=== PATIENT | female | born 1950 | race Caucasian/White ===

== ENCOUNTER 2021-08-21 13:25 | Inpatient (IN) ==
--- NOTE | 2021-08-21 13:55 | Emergency Department Note ---
HPI General Chief complaint: Trauma Stated complaint: weakness Time Seen by Provider: 08/21/21 13:45 Source: patient and EMS Mode of arrival: EMS History of Present Illness HPI Narrative: This a 70-year-old female with T2DM, hypertension, hyperlipidemia, GERD, hiatal hernia who suffered a ground-level fall earlier today walking down 5 stairs at her home. She states that she usually takes these 1 at a time and stepped down on the first stair and felt her legs give out due to weakness. She then slid down the remaining 4 stairs. She did not hit her head and there was no loss of consciousness. She is now complaining of bilateral lower extremity pain. EMS was called and they were unable to stand her up. Patient states that she has been suffering from myalgias from a statin that was started on 07/23/2021. She stopped the statin on 07/30 due to severe lower extremity muscle pain and cramping. She denies weakness preceding this event. She continues to have bilateral lower extremity muscle pain, but her lower extremity pain today is new after her fall. Patient takes tizanidine in the past for back pain. She did start taking this again in the setting of her ongoing myalgias. She denies dizziness or lightheadedness and typically tolerates this medication well. She denies nausea and vomiting. Denies lightheadedness or dizziness. Denies paresthesias. Denies radicular pain. No other complaints. Related Data Allergies Allergy/AdvReac Type Severity Reaction Status Date / Time phenazopyridine [From Azo] Allergy Severe Anaphylaxis Verified 08/21/21 13:27 ibuprofen Allergy Intermediate Hives Verified 08/21/21 13:27 Penicillins Allergy Unknown Unknown Verified 08/21/21 17:21 Review of Systems ROS ROS Narrative: Narrative: All systems ED: reviewed and negative except as stated. PFSH Narrative Patient History Narrative: Narrative: Medical/Surgical/Family History All Active Problems (Updated 08/21/21 @ 17:28 by Wen Lewis PA-C) Ankle fracture, lateral malleolus, closed (Acute) Bilateral fibular fractures (Acute) Myalgia and myositis (Acute) HTN (hypertension) (Acute) DM2 (diabetes mellitus, type 2) (Acute) Ankle fracture, left (Acute) Social History Smoking Status: Never smoker Exam Narrative Narrative: General: AOx3, NAD, nontoxic appearing. Pleasant and conversant. HEENT: PERRL, EOMI, normocephalic. Moist mucous membranes. Normal facies and normal dentition. Chest: Symmetric, no pain to palpation Respiratory: Lungs clear to auscultation bilaterally. No respiratory distress. Unlabored breathing. Heart: Regular rate and rhythm, no murmurs/clicks/rubs. Abdomen: Non-tender, Non distended, Extremities: Warm and well perfused. No edema. DP 2+ bilaterally. No venous stasis. Abrasion noted to the right lateral lower extremity. No ecchymosis. No deformities. Patient has 5/5 strength to motor testing. She is sensate to light touch throughout the bilateral lower extremities with no deficits. Neuro: No focal deficits. Cranial nerves II-XII grossly normal. Skin: Warm dry, no rashes or lesions, no cyanosis. Psych: Normal mood and affect Heme/Lymph: No abnormal bruising Course Course Course Narrative: 70-year-old female presents for fall and lower extremity weakness Reevaluation(s) Reevaluation #1: Obtain CBC, CMP, CK to query for rhabdomyolysis Obtain bilateral lower extremity tib-fib x-rays to rule out trauma Reevaluation #2: CK is normal, CMP and CBC without significant electrolyte derangements or anemia. No leukocytosis. Reevaluation #3: Bilateral lower extremity x-rays show bilateral high fibular fractures with a left lateral malleoli are fracture. I spoke with Dr. Solo and he would like additional 3 view of the bilateral ankles. He would like to take her for surgical repair today. Patient lives independently at home and will likely need placement following her surgery. I have reached out to the hospitalist for admission given her comorbidities of hypertension, type II DM, and morbid obesity. Vital Signs Vital signs: Vital Signs Temperature 97.9 F 08/21/21 13:28 Pulse Rate 108 H 08/21/21 13:28 Respiratory Rate 20 08/21/21 13:28 Blood Pressure 157/100 08/21/21 13:28 Pulse Oximetry (%) 96 08/21/21 13:28 Temperature 97.9 F 08/21/21 13:28 Pulse Rate 113 H 08/21/21 17:11 Respiratory Rate 20 08/21/21 13:28 Blood Pressure 170/85 08/21/21 17:02 Pulse Oximetry (%) 94 08/21/21 17:11 MDM MDM Narrative Medical decision making narrative: Bilateral fibular fractures Left lateral malleolar fracture Patient will need surgical repair of her fractures. I reached out to Dr. Solo [facility] Given her comorbidities and need for placement following her procedure I reached out to the hospitalist for admission who is accepted the patient. Admission pending. Lab Data Result diagrams: 08/21/21 14:11 08/21/21 15:58 Labs: Lab Results 08/21/21 08/21/21 08/21/21 Range/Units 14:10 14:11 14:36 WBC 8.9 (4.5-11.0) K/mcL RBC 5.34 (3.59-5.38) M/mcL Hgb 15.2 (11.2-15.7) g/dL Hct 47.4 H (34.1-44.9) % POC Hct 52.0 H (36-48) MCV 88.8 (80.0-100.0) fL MCH 28.5 (26.0-34.0) pg MCHC 32.1 (31.0-36.0) g/dL RDW 13.5 (11.5-14.5) % Plt Count 243 (140-440) K/mcL MPV 9.9 (7.4-10.4) fL Neut % (Auto) 74.3 (38.0-78.0) % Lymph % (Auto) 17.3 (15.5-49.0) % Collier % (Auto) 6.5 (1.0-12.0) % Eos % (Auto) 1.4 (0.0-7.0) % Baso % (Auto) 0.5 (0.0-2.0) % Lymph # (Auto) 1.53 (1.50-4.80) K/mcL Collier # (Auto) 0.58 (0.10-0.90) K/mcL Eos # (Auto) 0.12 (0.00-0.70) K/mcL Baso # (Auto) 0.04 (0.00-0.30) K/mcL Absolute Neutrophils 6.59 (1.80-8.00) K/mcL POC Sodium 140 (133-145) Sodium (133-145) mmol/L POC Potassium 3.5 (3.3-5.1) Potassium (3.3-5.1) mmol/L POC Chloride 106 (96-108) Chloride (96-108) mmol/L Carbon Dioxide (22-30) mmol/L POC Total CO2 26.0 (22-30) Anion Gap (8.0-16.0) POC BUN 23 H (6-20) BUN (8-23) mg/dL Creatinine (0.6-1.1) mg/dL POC Creatinine 0.8 (0.6-1.2) GFR Calculation Glucose (70-105) mg/dL POC Glucose 134 H (70-105) Calcium (8.6-10.4) mg/dL POC WB Ioniz Calcium 1.03 L (1.16-1.32) Total Bilirubin (0.1-1.0) mg/dL AST (<32) U/L ALT (<40) U/L Alkaline Phosphatase (39-117) U/L Total Creatine Kinase 102 (24-170) U/L Total Protein (5.9-8.4) gm/dL Albumin (3.2-5.2) gm/dL Globulin (2.2-3.7) gm/dL Albumin/Globulin Ratio (1.0-2.3) 08/21/21 Range/Units 15:58 WBC (4.5-11.0) K/mcL RBC (3.59-5.38) M/mcL Hgb (11.2-15.7) g/dL Hct (34.1-44.9) % POC Hct (36-48) MCV (80.0-100.0) fL MCH (26.0-34.0) pg MCHC (31.0-36.0) g/dL RDW (11.5-14.5) % Plt Count (140-440) K/mcL MPV (7.4-10.4) fL Neut % (Auto) (38.0-78.0) % Lymph % (Auto) (15.5-49.0) % Collier % (Auto) (1.0-12.0) % Eos % (Auto) (0.0-7.0) % Baso % (Auto) (0.0-2.0) % Lymph # (Auto) (1.50-4.80) K/mcL Collier # (Auto) (0.10-0.90) K/mcL Eos # (Auto) (0.00-0.70) K/mcL Baso # (Auto) (0.00-0.30) K/mcL Absolute Neutrophils (1.80-8.00) K/mcL POC Sodium (133-145) Sodium 140 (133-145) mmol/L POC Potassium (3.3-5.1) Potassium 3.5 (3.3-5.1) mmol/L POC Chloride (96-108) Chloride 99 (96-108) mmol/L Carbon Dioxide 26 (22-30) mmol/L POC Total CO2 (22-30) Anion Gap 15.0 (8.0-16.0) POC BUN (6-20) BUN 16 (8-23) mg/dL Creatinine 0.8 (0.6-1.1) mg/dL POC Creatinine (0.6-1.2) GFR Calculation 75 Glucose 125 H (70-105) mg/dL POC Glucose (70-105) Calcium 9.7 (8.6-10.4) mg/dL POC WB Ioniz Calcium (1.16-1.32) Total Bilirubin 0.5 (0.1-1.0) mg/dL AST 22 (<32) U/L ALT 26 (<40) U/L Alkaline Phosphatase 119 H (39-117) U/L Total Creatine Kinase (24-170) U/L Total Protein 7.4 (5.9-8.4) gm/dL Albumin 4.2 (3.2-5.2) gm/dL Globulin 3.2 (2.2-3.7) gm/dL Albumin/Globulin Ratio 1.3 (1.0-2.3) ED POC Tests ED POC Tests: CONCHA - SARS Antigen Negative Discharge Plan Patient/Caregiver Discharge Instructions Pt seen by FRE[facility] LOADER/PA only: Yes Clinical Impression: Ankle fracture, lateral malleolus, closed, Bilateral fibular fractures Patient Disposition: Xfer As Inpt ([facility]) Discharge Date/Time: 08/21/21 17:15
[2021-08-21 14:40] LABS: POC Calcium, Ionized 1.03 (1.16-1.32); POC Creatinine 0.8 (0.6-1.2); POC Potassium 3.5 (3.3-5.1)
[2021-08-21 14:42] LABS: Basophils # (Auto) 0.04 K/mcL (0.00-0.30); Basophils % (Auto) 0.5 % (0.0-2.0); Eosinophils # (Auto) 0.12 K/mcL (0.00-0.70); Eosinophils % (Auto) 1.4 % (0.0-7.0); Hematocrit 47.4 % (34.1-44.9); Hemoglobin 15.2 g/dL (11.2-15.7); Lymphocytes # (Auto) 1.53 K/mcL (1.50-4.80); Lymphocytes % (Auto) 17.3 % (15.5-49.0); Mean Cell Volume 88.8 fL (80.0-100.0); Mean Corpuscular HGB Conc 32.1 g/dL (31.0-36.0); Mean Platelet Volume 9.9 fL (7.4-10.4); Monocytes # (Auto) 0.58 K/mcL (0.10-0.90); Monocytes % (Auto) 6.5 % (1.0-12.0); Neutrophils % (Auto) 74.3 % (38.0-78.0); Platelet Count 243 K/mcL (140-440); RBC 5.34 M/mcL (3.59-5.38); Red Cell Distribution Width 13.5 % (11.5-14.5); WBC 8.9 K/mcL (4.5-11.0)
[2021-08-21 15:04] LABS: Creatine Kinase 102 U/L (24-170)
[2021-08-21] MEDS ORDERED: KETOROLAC 60 MG/2 ML VIAL IM ONE (15:38)
--- NOTE | 2021-08-21 15:55 | XRay Report ---
History: Fell, bilateral leg injuries FINDINGS: AP and lateral views were obtained of the lower leg bilaterally. Left leg: There is an obliquely oriented fracture in the proximal shaft of the fibula. There is also and obliquely oriented fracture through the lateral malleolus. The talus is also displaced in a lateral direction resulting in moderate widening of the medial joint compartment. There is no fracture in the tibia. However, there is moderate osteoarthritis in the knees, predominantly involving the medial joint compartment. Right leg: There is an acute comminuted fracture in the proximal shaft of the fibula. There is mild lateral angulation at the fracture site. Distal end of the fibula is intact. The tibia is normal with no fracture. Ankle joint space is normal in width and alignment. Severe osteoarthritis is present in the medial joint compartment with partial obliteration of the joint space, reactive sclerosis and spur formation. IMPRESSION: Comminuted fracture in the proximal right fibula Fractures in both the proximal and distal ends of the left fibula. Lateral subluxation of the left talus with widening of the medial joint compartment Interpreted and Authenticated by: Jacques Holloway 08/21/21
--- NOTE | 2021-08-21 16:36 | XRay Report ---
HISTORY: Fell, right ankle injury FINDINGS: No fracture or dislocation are present. Joint spaces are normal in width. There is soft tissue swelling surrounding the ankle. A large spur is present on the plantar surface of the calcaneus. There is no associated erosion. There is no other degenerative change. IMPRESSION: No fracture Interpreted and Authenticated by: Jacques Holloway 08/21/21
--- NOTE | 2021-08-21 16:37 | XRay Report ---
HISTORY: Fell, left ankle injury FINDINGS: There is an acute spiral fracture of the lateral malleolus. Distal end of the bone is mildly angulated in a lateral direction. The talus is subluxed laterally resulting in moderate widening of the medial joint compartment. There is an associated joint effusion. No other fracture is present. Large spur is present on the plantar surface of the calcaneus. IMPRESSION: Fractured lateral talus with lateral subluxation of the talus Interpreted and Authenticated by: Jacques Holloway 08/21/21
--- NOTE | 2021-08-21 16:39 | XRay Report ---
HISTORY: Fell, preop for repair fractured ankle FINDINGS: The lungs are clear. There is a retrocardiac opacity which is probably a large hiatus hernia. A medium-size hiatus hernia was seen on the prior x-ray done at [facility] on 09/25/15. Heart size and pulmonary vasculature are normal. There is no pleural effusion. Severe arthritis is present in the right shoulder and there is moderate arthritis in the left. IMPRESSION: Hiatus hernia and no acute abnormality Interpreted and Authenticated by: Jacques Holloway 08/21/21
[2021-08-21] MEDS ORDERED: ceFAZolin 3 GM in DEXTROSE 5% IN WATER 50 ML IV SCH (17:00)
--- NOTE | 2021-08-21 17:04 | Consultation ---
DATE OF CONSULTATION: 08/21/2021 REASON FOR CONSULTATION: Bilateral leg fractures. DATE OF CONSULTATION: 08/21/2021. CONSULTING PROVIDER: ANN-MARIE Pisano. HISTORY OF PRESENT ILLNESS: The patient is a 70-year-old female who reports falling down some steps earlier today. She resides by herself, reports inability to ambulate thereafter, and brought to the emergency department for evaluation and treatment. On presentation, she complains of bilateral lower extremity pain. She reports that she has been having joint pain for quite some time and thought it was from her statin medication. This was stopped. However, the pain continued, and she had her legs just gave way when she went to go down the steps and lost balance and fell. PAST MEDICAL HISTORY: Significant for diabetes, hiatal hernia, reflux, and hypertension. PAST SURGICAL HISTORY: Right total hip arthroplasty, cholecystectomy, hernia operative fixation. ALLERGIES: PENICILLIN, IBUPROFEN, PHENAZOPYRIDINE. MEDICATIONS: She does take metformin and hypertension medication as well as medication for her reflux. SOCIAL HISTORY: She does reside by herself here locally. She does not use tobacco products. REVIEW OF SYSTEMS: Other than mentioned in HPI, a 10-point review of systems is negative. PHYSICAL EXAMINATION: GENERAL: The patient is alert, oriented, interactive and appropriate. VITAL SIGNS: She is afebrile, temperature of 97.9, heart rate is in the low 100s, blood pressure 150s over 90s, saturating 92 to 96% on room air. EXTREMITIES: Right lower extremity reveals that she does have significant swelling about the lateral malleolar region. Skin is intact. No significant abrasions noted. She does have mild tenderness about the proximal fibula. The foot is slightly externally rotated and is warm and well perfused. Sensation is intact to light touch. Examination of the left lower extremity reveals she has an abrasion over the anterolateral aspect of her mid leg region as well as abrasion over the toes; however, no skin breaks, otherwise. She has significant swelling over the lateral aspect of the ankle as well, but sensation intact throughout. Renetta lines were present. No tenderness about the more proximal region. Foot is warm and well perfused. IMAGING: She has plain radiographs to include tib-fib bilaterally as well as ankle x-rays bilaterally. She has a left displaced distal fibular fracture at level of the plafond with significant medial clear space widening. She has a proximal fibular fracture on the same side that is spiral and slightly shortened as well. She also has a right proximal fibula spiral fracture. Did not appear to have an ankle fracture itself. The mortise is reduced. ASSESSMENT AND PLAN: This is a 70-year-old female who has bilateral lower extremity fractures. The left side appears to be an unstable ankle fracture, which I reviewed with her and discussed treatment options. My recommendation would be operative fixation given the unstable nature of the fracture. I discussed sometimes there is a requirement for transsyndesmotic fixation, which I suspect is the case for her. If we do use solid screws, this would be something that we would recommend removing around the 4-month postoperative timothy. She is also going to be restricted weightbearing on the left lower extremity for 6 weeks. She will be foot flat in the interim. The right lower extremity questionable syndesmotic injury as she does have significant bruising and pain distally; however, no fractures and the mortise is reduced on radiographs. I discussed while undergoing operative fixation of the left ankle we can stress the right side. If it is unstable, it would require syndesmotic fixation. I discussed this would be two transsyndesmotic screws, which subsequently would be recommended to be removed about 4 months. The patient understands. I discussed risks and benefits of surgery as well as postoperative expectations and recovery process. She understands and wants to proceed with surgical intervention. Given that she lives alone and bilateral lower extremity fractures, she is unable to return home and will be admitted to the hospital. [email or web address] Job ID: [id number] Doc ID: [id number] Eddie Solo MD [facility]
--- NOTE | 2021-08-21 17:09 | Internal Med History&Physical ---
HPI History of Present Illness Patient information: Note initiated : 08/21/21 at 5:03 pm Service Date, if different from initiated Date: [Today] Patient: Susannah Kiran 70 y/o F admitted on for weakness. Chief Complaint: [Fall] Chief complaint: Ground-level fall History of present illness: Ms. Kiran is a 70 year old F with a past medical history significant for diabetes mellitus type 2, hypertension and hyperlipidemia who presents to the hospital with a fall down the stairs resulting in left ankle fracture. The patient states that she was previously on statin therapy which resulted in severe myalgias leaving her incapacitated. She did not go outside for several weeks. She decided to leave her house today and was walking down the stairs sideways by holding the rails with both hands and taking 1 step at a time however ended up tumbling down the stairs. She lives alone but her purse was near her and she was able to call EMS. On presentation she was hemodynamically stable and afebrile. X-ray of the left ankle revealed fracture of the lateral talus and lateral subluxation. Review of Systems All systems: reviewed and no additional remarkable complaints except as stated Constitutional Constitutional: Present as per HPI EENT Eyes: Present as per HPI; Absent blurry vision Cardiovascular Cardiovascular: Present as per HPI; Absent chest pain, dyspnea, dyspnea on exertion, leg edema or palpatations Respiratory Respiratory: Present as per HPI; Absent cough, dyspnea, dyspnea on exertion, wheezing or stridor Gastrointestinal Gastrointestinal: Present as per HPI; Absent abdominal pain, diarrhea, dysphagia, hematemesis, melena, nausea or vomiting Musculoskeletal Musculoskeletal: Present as per HPI; Absent joint swelling, limited range of motion, muscle cramps, muscle weakness or myalgias Integumentary Integumentary: Present as per HPI; Absent erythema, new lesions, rash or wounds Neurological Neurological: Present as per HPI; Absent abnormal gait, behavioral changes, focal weakness, headache(s), loss of vision, numbness, sensory deficit or syncope Endocrine Endocrine: Absent change in body appearance, fatigue or heat intolerance Hematologic/Lymphatic Hematologic/Lymphatic: Present as per HPI PFSH PFSH All Active Problems (Updated 08/21/21 @ 17:07 by Axel Carrillo MD) Myalgia and myositis (Acute) HTN (hypertension) (Acute) DM2 (diabetes mellitus, type 2) (Acute) Ankle fracture, left (Acute) MEDS/ALLERGIES Home Medications and Allergies Allergies Allergy/AdvReac Type Severity Reaction Status Date / Time phenazopyridine [From Azo] Allergy Severe Anaphylaxis Verified 08/21/21 13:27 ibuprofen Allergy Intermediate Hives Verified 08/21/21 13:27 Penicillins Allergy Unknown Unknown Verified 08/21/21 17:01 EXAM Constitutional Vitals: Temp Pulse Resp BP Pulse Ox 97.9 F 93 H 20 161/95 92 08/21/21 13:28 08/21/21 14:28 08/21/21 13:28 08/21/21 14:01 08/21/21 14:28 General appearance: average body habitus Head Head exam: Present atraumatic, normal inspection and normocephalic Eye Eye exam: Present EOMI, normal appearance and PERRL; Absent conjunctival injection ENT ENT exam: Present normal exam; Absent mucous membranes dry Neck Neck exam: Present full ROM; Absent lymphadenopathy Respiratory Respiratory exam: Present normal respiratory exam and CTAB; Absent decreased breath sounds, respiratory distress or wheezes Cardiovascular Cardiovascular exam: Present normal rate and rhythm and RRR; Absent JVD GI/Abdominal GI/Abdominal exam: Present normal bowel sounds and soft; Absent diminished bowel sounds, distended, guarding, mass, rebound or tenderness Neurological Exam Neurological exam: Present alert, CN II-XII intact and oriented X3 Psychiatric Psychiatric exam: Present normal affect and normal mood Skin Skin exam: Present intact and warm; Absent erythema, pallor, petechiae or rash DATA Data Completed and Pending Labs: Labs from last 24 hours 08/21/21 08/21/21 08/21/21 15:58 14:36 14:11 WBC 8.9 RBC 5.34 Hgb 15.2 Hct 47.4 H POC Hct 52.0 H MCV 88.8 MCH 28.5 MCHC 32.1 RDW 13.5 Plt Count 243 MPV 9.9 Neut % (Auto) 74.3 Lymph % (Auto) 17.3 Kleberg % (Auto) 6.5 Eos % (Auto) 1.4 Baso % (Auto) 0.5 Lymph # (Auto) 1.53 Kleberg # (Auto) 0.58 Eos # (Auto) 0.12 Baso # (Auto) 0.04 Absolute Neutrophils 6.59 POC Sodium 140 Sodium Pending POC Potassium 3.5 Potassium Pending POC Chloride 106 Chloride Pending Carbon Dioxide Pending POC Total CO2 26.0 Anion Gap Pending POC BUN 23 H BUN Pending Creatinine Pending POC Creatinine 0.8 GFR Calculation Pending Glucose Pending POC Glucose 134 H Calcium Pending POC WB Ioniz Calcium 1.03 L Total Bilirubin Pending AST Pending ALT Pending Alkaline Phosphatase Pending Total Creatine Kinase Total Protein Pending Albumin Pending Globulin Pending Albumin/Globulin Ratio Pending 08/21/21 14:10 WBC RBC Hgb Hct POC Hct MCV MCH MCHC RDW Plt Count MPV Neut % (Auto) Lymph % (Auto) Kleberg % (Auto) Eos % (Auto) Baso % (Auto) Lymph # (Auto) Kleberg # (Auto) Eos # (Auto) Baso # (Auto) Absolute Neutrophils POC Sodium Sodium POC Potassium Potassium POC Chloride Chloride Carbon Dioxide POC Total CO2 Anion Gap POC BUN BUN Creatinine POC Creatinine GFR Calculation Glucose POC Glucose Calcium POC WB Ioniz Calcium Total Bilirubin AST ALT Alkaline Phosphatase Total Creatine Kinase 102 Total Protein Albumin Globulin Albumin/Globulin Ratio A/P Assessment and plan (1) Ankle fracture, left: Status: Acute (2) DM2 (diabetes mellitus, type 2): Status: Acute (3) HTN (hypertension): Status: Acute (4) Myalgia and myositis: Status: Acute Narrative A/P Narrative: The patient will be hospitalized as she will require ORIF of her left ankle per orthopedic surgery. The hospitalist service was asked admit the patient for comanagement. She is on triamterenehydrochlorothiazide for hypertension which we will hold. She is no longer on statin therapy. She is on metformin 500 mg p.o. daily at home which we will hold and start on insulin sliding scale. Started on multimodal pain control with Tylenol, Dilaudid, and Toradol. Time Spent With Patient Time: Total time spent is greater than 50% in coordination of care (as documented) at patient's floor/unit and/or counseling patient: Total time spent with greater than 50% in coordination of care (as documented) at patient's floor/unit and/or counseling patient:: 50 - 70 minutes
[2021-08-21 17:26] LABS: ALT/SGPT 26 U/L (<40); AST/SGOT 22 U/L (<32); Albumin 4.2 gm/dL (3.2-5.2); Albumin/Globulin Ratio 1.3 (1.0-2.3); Alkaline Phosphatase 119 U/L (39-117); Bilirubin,Total 0.5 mg/dL (0.1-1.0); Blood Urea Nitrogen 16 mg/dL (8-23); Calcium 9.7 mg/dL (8.6-10.4); Carbon Dioxide 26 mmol/L (22-30); Chloride 99 mmol/L (96-108); Globulin 3.2 gm/dL (2.2-3.7); Glomerular Filtration Rate 75; Glucose 125 mg/dL (70-105)
[2021-08-21] MEDS ORDERED: PHENYLephrine 1 MG/10 ML SYRINGE (ANEST) ONE (17:35)
[2021-08-21] MEDS ORDERED: fentaNYL 250 MCG/5 ML VIAL IV ONE (17:35)
[2021-08-21] MEDS ORDERED: KETAMINE 50 MG/ML Syringe (ANEST) IV ONE (17:35)
[2021-08-21] MEDS ORDERED: PROPOFOL 200 MG/20 ML VIAL IV ONE (17:35)
[2021-08-21] MEDS ORDERED: LIDOCAINE HCL/PF 100 MG/5 ML SYRINGE IV ONE (17:35)
[2021-08-21] MEDS ORDERED: DEXAMETHASONE 10 MG/ML VIAL ONE (17:35)
[2021-08-21] MEDS ORDERED: diphenhydrAMINE 50 MG/ML VIAL ONE (17:35)
[2021-08-21] MEDS ORDERED: SUCCINYLCHOLINE 20 MG/ML ML IV ONE (17:35)
[2021-08-21] MEDS ORDERED: ONDANSETRON 4 MG/2 ML VIAL ONE (17:35)
[2021-08-21] MEDS ORDERED: MAGNESIUM SULFATE 2 GM/50 ML BAG IV ONE (17:35)
[2021-08-21] MEDS ORDERED: ONDANSETRON 4 MG/2 ML VIAL IV PRN ×2 (18:30→19:46)
[2021-08-21] MEDS ORDERED: MEPERIDINE 25 MG/ML VIAL IV PRN (18:30)
[2021-08-21] MEDS ORDERED: PROMETHAZINE 25 MG/ML VIAL IV PRN (18:30)
[2021-08-21] MEDS ORDERED: IPRATROPIUM/ALBUTEROL 3 ML AMPUL.NEB NEB PRN (18:30)
[2021-08-21] MEDS ORDERED: fentaNYL 100 MCG/2 ML VIAL IV PRN (18:30)
[2021-08-21] MEDS ORDERED: diphenhydrAMINE 50 MG/ML VIAL IV PRN (18:30)
[2021-08-21] MEDS ORDERED: LACTATED RINGERS 250 ML IV PRN (18:30)
[2021-08-21] MEDS ORDERED: LACTATED RINGERS 1,000 ML IV SCH (18:30)
[2021-08-21] MEDS ORDERED: NALOXONE HCL 0.4 MG/ML VIAL IV PRN (18:30)
--- NOTE | 2021-08-21 18:40 | Brief Operative Note ---
Brief Operative Note Date of procedure: 08/21/21 Pre-op diagnosis: right proximal tibia fracture, left proximal fibula fracture, distal fibula Post-op diagnosis: same Procedure: right ankle stress x-rays, ORIF left distal fibula with syndesmosis fixation Grafts/Implants: Yes Anesthesia: GETA Findings: stable ER stress on right, unstable distal fibula fracture R with syndesmosis injury Complications: none Surgeon: Eddie Solo Blasting Contract Man: Koby Liu Estimated blood loss (cc): 5 Tourniquet Time (Minutes): 40 Specimens Removed/Pathology: none sent Condition: stable Disposition: PACU
[2021-08-21] MEDS ORDERED: ceFAZolin 2 GM in DEXTROSE 5% IN WATER 50 ML IV SCH (19:00)
[2021-08-21] MEDS ORDERED: LIDOCAINE 1% 20 ML, BUPIVACAINE 0.5% 20 ML SQ ONE (19:08)
[2021-08-21] MEDS ORDERED: DEXTROSE 50% 50 ML VIAL IV PRN (19:46)
[2021-08-21] MEDS ORDERED: DEXTROSE 31 GM ORAL.SUSP PO PRN (19:46)
[2021-08-21] MEDS ORDERED: ACETAMINOPHEN 325 MG TABLET PO PRN (19:46)
[2021-08-21] MEDS ORDERED: HYDROmorphone 2 MG TABLET PO PRN (19:46)
[2021-08-21] MEDS: INSULIN LISPRO 1 UNIT/0.01 ML UNIT SQ SCH ×2 (21:13→21:34)
[2021-08-21] MEDS: KETOROLAC 30 MG/ML VIAL IV PRN (21:34)
[2021-08-21] MEDS: SENNOSIDES 1 TABLET PO SCH (21:34)
[2021-08-21] MEDS: DOCUSATE SODIUM 100 MG CAPSULE PO SCH (21:34)
[2021-08-21] MEDS: 0.9 % SODIUM CHLORIDE 10 ML SYRINGE IV SCH (21:35)
[2021-08-22] MEDS: 0.9 % SODIUM CHLORIDE 10 ML SYRINGE IV SCH ×3 (04:12→20:51)
[2021-08-22 06:25] LABS: Basophils # (Auto) 0.01 K/mcL (0.00-0.30); Basophils % (Auto) 0.1 % (0.0-2.0); Eosinophils # (Auto) 0 K/mcL (0.00-0.70); Eosinophils % (Auto) 0 % (0.0-7.0); Hemoglobin 13.5 g/dL (11.2-15.7); Lymphocytes # (Auto) 1.08 K/mcL (1.50-4.80); Lymphocytes % (Auto) 12.3 % (15.5-49.0); Mean Cell Volume 87.5 fL (80.0-100.0); Mean Corpuscular HGB Conc 32.1 g/dL (31.0-36.0); Mean Platelet Volume 10.1 fL (7.4-10.4); Monocytes # (Auto) 0.32 K/mcL (0.10-0.90); Monocytes % (Auto) 3.6 % (1.0-12.0); Platelet Count 280 K/mcL (140-440); Red Cell Distribution Width 13.3 % (11.5-14.5); WBC 8.8 K/mcL (4.5-11.0)
--- NOTE | 2021-08-22 06:29 | Orthopedic Progress Note ---
SUBJECTIVE Subjective Patient information: Note initiated : 08/22/21 at 6:26 am Service Date, if different from initiated Date: [] Patient: Susannah Kiran 70 y/o F admitted on 08/21/21 for weakness. Chief Complaint: [no acute issues overnight. pain controlled] Constitutional Vitals: Vital Signs Temp Pulse Resp BP Pulse Ox 97.2 F 106 H 18 117/63 90 08/22/21 04:00 08/22/21 04:00 08/22/21 04:00 08/22/21 04:00 08/22/21 04:00 Period Temp Pulse Resp BP Sys/Villatoro Pulse Ox Last 24 Hr 97.2 F-98.6 F 93-126 12- 117-187/63-120 90-100 Intake and Output 08/21/21 08/22/21 08/22/21 21:59 05:59 13:59 Intake Total 750 480 Output Total 227 Balance 750 253 Weight 280 lb 5 oz Intake & Output: Intake & Output 08/21/21 08/22/21 08/22/21 21:59 05:59 13:59 Intake Total 750 480 Output Total 227 Balance 750 253 Weight 280 lb 5 oz Intake: IV 50 Ancef 3 gm In Dextrose 5% in 50 Water 50 ml @ 100 mls/hr IV PREOP MAGGIE Rx#:[id number] Oral 480 IV - Manual Only 700 Output: Void Amount 225 # of times incontinent of urine 2 Other: Meal Nourishment/Supplement Additional findings Additional findings: alert oriented and appropriate OBJ DATA Labs CBC & Chem 7: 08/22/21 05:18 08/21/21 15:58 Labs: Abnormal Lab Results 08/22/21 08/21/21 08/21/21 05:18 15:58 14:36 Hct POC Hct 52.0 H Neut % (Auto) 84.0 H Lymph % (Auto) 12.3 L Lymph # (Auto) 1.08 L POC BUN 23 H Glucose 125 H POC Glucose 134 H POC WB Ioniz Calcium 1.03 L Alkaline Phosphatase 119 H 08/21/21 14:11 Hct 47.4 H POC Hct Neut % (Auto) Lymph % (Auto) Lymph # (Auto) POC BUN Glucose POC Glucose POC WB Ioniz Calcium Alkaline Phosphatase Meds: Medications Acetaminophen (Acetaminophen 325 Mg Tablet) 650 mg PO Q6HP PRN; Protocol PRN Reason: Per Pain Protocol/Fever > 101 Last Admin: 08/22/21 05:42 Dose: 650 mg Documented by: Hydrocodone Bitart/Acetaminophen (Hydrocodone/Apap 5/325mg Tablet) 1 - 2 tab PO Q4HP PRN; Protocol PRN Reason: Per Pain Protocol Dextrose (Dextrose 50% 50 Ml Vial) 0 ml IV UD PRN PRN Reason: Per Sliding Scale Diagnostic Test (Pha) (Accu-Chek 1 Each Strip) 1 each FS [facility] Last Admin: 08/21/21 21:15 Dose: 1 each Documented by: Docusate Sodium (Docusate Sodium 100 Mg Capsule) 100 mg PO BID [facility] Last Admin: 08/21/21 21:34 Dose: 100 mg Documented by: Enoxaparin Sodium (Enoxaparin 40 Mg/0.4 Ml Syringe) 40 mg SQ DAILY [facility] Glucose (Dextrose 31 Gm Oral.Susp) 15 gm PO PRN PRN PRN Reason: Hypoglycemia Hydromorphone HCl (Hydromorphone 2 Mg Tablet) 2 mg PO Q4HP PRN; Protocol PRN Reason: Per Pain Protocol Insulin Human Lispro (Insulin Lispro 1 Unit/0.01 Ml Unit) 0 unit SQ [facility]; Protocol Last Admin: 08/21/21 21:34 Dose: 4 unit Documented by: Ketorolac Tromethamine (Ketorolac 30 Mg/Ml Vial) 30 mg IV Q6HP PRN; Protocol PRN Reason: Per Pain Protocol Stop: 08/23/21 16:49 Last Admin: 08/21/21 21:34 Dose: 30 mg Documented by: Ondansetron HCl (Ondansetron 4 Mg/2 Ml Vial) 4 mg IV Q6HP PRN PRN Reason: Nausea And Vomiting Senna (Sennosides 1 Tablet) 2 tab PO HS [facility] Last Admin: 08/21/21 21:34 Dose: 2 tab Documented by: Sodium Chloride (0.9 % Sodium Chloride 10 Ml Syringe) 10 ml IV Q8 [facility] Last Admin: 08/22/21 04:12 Dose: 10 ml Documented by: A/P Assessment and plan (1) Ankle fracture, lateral malleolus, closed: Assessment and plan: POD 1 s/p left ankle fracture ORIF, closed treatment bilateral proximal fibula fracture -- PT today ------foot flat weight bearing left ankle and WBAT on right ankle -- oral pain meds -- prophy: lovenox, foot pumps, IS -- Dispo: from ortho standpoint, will need placement most likely Status: Acute (2) Bilateral fibular fractures: Status: Acute Time Spent With Patient Time: Total time spent is greater than 50% in coordination of care (as documented) at patient's floor/unit and/or counseling patient:
[2021-08-22 06:57] LABS: Blood Urea Nitrogen 21 mg/dL (8-23); Calcium 9.1 mg/dL (8.6-10.4); Carbon Dioxide 24 mmol/L (22-30); Chloride 100 mmol/L (96-108); Glomerular Filtration Rate 65; Glucose 174 mg/dL (70-105)
[2021-08-22] MEDS: INSULIN LISPRO 1 UNIT/0.01 ML UNIT SQ SCH ×4 (07:40→20:50)
[2021-08-22] MEDS: DOCUSATE SODIUM 100 MG CAPSULE PO SCH ×2 (07:41→20:50)
[2021-08-22] MEDS: ENOXAPARIN 40 MG/0.4 ML SYRINGE SQ SCH (07:41)
--- NOTE | 2021-08-22 07:42 | XRay Report ---
HISTORY: Postop repair fractured left ankle FINDINGS: There is good alignment following open reduction internal fixation of the fractured distal fibula. There is a metal plate secured laterally with multiple screws. The talus is now normally aligned with the tibia with no residual subluxation. IMPRESSION: Normal alignment following open reduction internal fixation Interpreted and Authenticated by: Jacques Holloway 08/22/21
[2021-08-22] MEDS ORDERED: ALBUTEROL SULFATE 200 PUFF INHALER INH PRN (08:11)
[2021-08-22] MEDS ORDERED: LORATADINE 10 MG TABLET PO PRN (08:11)
[2021-08-22] MEDS ORDERED: ACETAMINOPHEN 500 MG TABLET PO PRN (08:19)
[2021-08-22] MEDS: DULoxetine 30 MG CAPSULE PO SCH (08:24)
[2021-08-22] MEDS: OMEPRAZOLE 20 MG CAPSULE PO SCH (08:24)
--- NOTE | 2021-08-22 08:49 | Operative Note ---
DATE OF OPERATION: 08/21/2021 DATE OF PROCEDURE: 08/21/2021 PREOPERATIVE DIAGNOSES: 1. Left distal fibular fracture with disruption of the mortise. 2. Left proximal fibular fracture. 3. Right proximal fibular fracture. POSTOPERATIVE DIAGNOSES: 1. Left distal fibular fracture with disruption of the mortise. 2. Left proximal fibular fracture. 3. Right proximal fibular fracture. PROCEDURE PERFORMED: 1. Open reduction and internal fixation of left distal fibular fracture with syndesmosis fixation. 2. Right stress ankle radiographs. SURGEON: Eddie Solo M.D. PASTER SUPERVISOR: Koby Liu PA-C. This providers expertise and technical skill were required throughout the case. The PA assisted with preoperative coordination, intraoperative retraction, wound closure, and dressing and splint application, as well as postoperative documentation and care coordination. ANESTHESIA: General. INTRAVENOUS FLUIDS: A liter lactated Ringer's. ESTIMATED BLOOD LOSS: Minimal. TOURNIQUET TIME: 40 minutes at 300 mmHg. IMPLANTS: A 5-hole distal femoral locking plate with two transsyndesmotic 3.5 fully threaded cortical screws. IV ANTIBIOTICS: 3 grams Ancef. INTRAOPERATIVE COMPLICATIONS: None apparent. PATHOLOGY/LAB: None. INDICATIONS FOR PROCEDURE: The patient is a 70-year-old female who fell on some stairs today, resulting in a left displaced ankle fracture with disruption of the mortise as well as a proximal fibula fracture and also a right proximal fibular fracture. I discussed this with her. I discussed that the right side given, the proximal fibular fracture, has a potential for syndesmotic injury of the ankle and would recommend stress radiographs. Given that the left ankle is an unstable ankle fracture pattern with likley syndesmosis,, my recommendation is for operative fixation. I could stress the right ankle at the same time as operative fixation of the left ankle and if indeed it was unstable, could place transsyndesmotic screws on that side as well. I discussed what surgery entails as well as postoperative expectation and recovery process. She understands and elects to proceed in that fashion. DESCRIPTION OF PROCEDURE: Patient was met in preoperative holding, and the site was verified and marked with the patient's input. She was taken back to the operating room where she was successful anesthesia. Her right lower extremity underwent an external rotation stress test without any increase in medial clear space widening, but also noted no decrease in tib fib overlap. Given that, I felt that the ankle was stable and the mortise was concentrically reduced. At this point, a well-padded tourniquet was placed about the proximal left thigh and then prepped and draped in the usual sterile fashion with ChloraPrep. Surgical timeout was performed. The patient's identity, correct procedure being performed, and correct extremity being operated on all verified and everybody was in agreement. Esmarch was then utilized to exsanguinate the extremity, tourniquet was inflated to 250 mmHg. I made approximately an 8-10 cm incision over the posterior aspect of the distal fibula ending at the level of the distal tip. Skin was sharply incised. Electrocautery device was used to get down to the peroneal fascia. Peroneal fascia was incised with a clean 15 blade and through this, the posterior border of the fibula was identified and subperiosteal dissection was elevated anteriorly exposing the fracture. The fracture was distally a bit shortened; however, minimal. This was reduced easily with a [id number] clamp and a lobster clamp. A distal fibular locking plate was then placed and secured in place with the BB-Jamaal device, I placed three locking 2.7 screws distally and then placed one 2.7 nonlocking screw proximally. I verified the position underneath fluoroscopy and overall alignment appeared to be anatomic. I placed additional 2.7 nonlocking screw proximally and subsequently placed additional 2.7 locking screws in the distal fragment. At this point, the ankle was stressed and was unstable and I placed two transsyndesmotic screws with the foot in neutral dorsiflexion along with placing stress across the medial and lateral malleoli with only manual stress. These were positional screws. They were quadricortical. Overall, at the conclusion the mortise was reduced. The fibula appeared to be out to length. The wound was copiously irrigated. I did place vancomycin powder deep in the wound. The peroneal fascia was closed with 0 Vicryl in running fashion, subcutaneous tissue in layered fashion with a 3-0 Vicryl and skin closed with 3-0 nylon in running fashion. The leg was then cleaned and dried. Xeroform was placed along fluffs, Webril, and Chan wrap placed into a CAM walking boot. Left lower extremity was placed in a boot as well for support. POSTOPERATIVE PLAN: The patient will be transferred to PACU, but will be admitted, given her living alone, as well as bilateral lower extremity injuries limiting her weightbearing and function overall. She will likely require a short stay in a rehab facility. [email or web address] Job ID: [id number] Doc ID: [id number] Eddie Solo MD [facility]ITAL[facility]ney
[2021-08-22] MEDS ORDERED: ENOXAPARIN 40 MG/0.4 ML SYRINGE SQ SCH (09:00)
[2021-08-22] MEDS: HYDROcodone/APAP 5/325MG TABLET PO PRN ×2 (12:06→16:44)
--- NOTE | 2021-08-22 12:24 | Internal Med Progress Note ---
SUBJECTIVE Subjective Patient information: Note initiated : 08/22/21 at 12:20 pm Service Date, if different from initiated Date: [as above] Patient: Susannah Kiran 70 y/o F admitted on 08/21/21 for weakness. Chief Complaint: [falls] Principal diagnosis: Left ankle fracture Interval history: The patient had an uncomplicated postoperative course. Her pain is well controlled. She is in good spirits. She understands that she will need to go to long term facility postdischarge. She did work with physical therapy this morning. Constitutional Vitals: Vital Signs Temp Pulse Resp BP Pulse Ox 97.8 F 105 H 18 136/79 91 08/22/21 08:00 08/22/21 08:00 08/22/21 08:00 08/22/21 08:00 08/22/21 08:00 Period Temp Pulse Resp BP Sys/Villatoro Pulse Ox Last 24 Hr 97.2 F-98.6 F 93-126 12-21 117-187/63-120 90-100 Intake and Output 08/21/21 08/22/21 08/22/21 21:59 05:59 13:59 Intake Total 750 480 Output Total 227 Balance 750 253 Weight 127.148 kg Intake & Output: Intake & Output 08/21/21 08/22/21 08/22/21 21:59 05:59 13:59 Intake Total 750 480 Output Total 227 Balance 750 253 Weight 127.148 kg Intake: IV 50 Ancef 3 gm In Dextrose 5% in 50 Water 50 ml @ 100 mls/hr IV PREOP MAGGIE Rx#:[id number] Oral 480 IV - Manual Only 700 Output: Void Amount 225 # of times incontinent of urine 2 Other: Meal Nourishment/Supplement Head Head exam: Present atraumatic and normal inspection Eye Eye exam: Present normal appearance ENT ENT exam: Present mucous membranes moist, normal exam and normal external ear exam Neck Neck exam: Present normal inspection Respiratory Respiratory exam: Present normal respiratory exam Cardiovascular Cardiovascular exam: Present normal rate and rhythm GI/Abdominal GI/Abdominal exam: Present normal bowel sounds Back Exam Back exam: Present normal inspection Neurological Exam Neurological exam: Present alert and oriented X3 Skin Skin exam: Present intact and warm OBJ DATA Labs CBC & Chem 7: 08/22/21 05:18 08/22/21 05:18 Labs: Abnormal Lab Results 08/22/21 08/22/21 08/21/21 05:18 05:18 15:58 Hct POC Hct Neut % (Auto) 84.0 H Lymph % (Auto) 12.3 L Lymph # (Auto) 1.08 L POC BUN Glucose 174 H 125 H POC Glucose POC WB Ioniz Calcium Alkaline Phosphatase 119 H 08/21/21 08/21/21 14:36 14:11 Hct 47.4 H POC Hct 52.0 H Neut % (Auto) Lymph % (Auto) Lymph # (Auto) POC BUN 23 H Glucose POC Glucose 134 H POC WB Ioniz Calcium 1.03 L Alkaline Phosphatase Meds: Medications Acetaminophen (Acetaminophen 325 Mg Tablet) 650 mg PO Q6HP PRN; Protocol PRN Reason: Per Pain Protocol/Fever > 101 Last Admin: 08/22/21 05:42 Dose: 650 mg Documented by: Acetaminophen (Acetaminophen 500 Mg Tablet) 1,000 mg PO Q6HP PRN PRN Reason: PAIN/FEVER > 101 Hydrocodone Bitart/Acetaminophen (Hydrocodone/Apap 5/325mg Tablet) 1 - 2 tab PO Q4HP PRN; Protocol PRN Reason: Per Pain Protocol Last Admin: 08/22/21 12:06 Dose: 1 tab Documented by: Albuterol Sulfate (Albuterol Sulfate 200 Puff Inhaler) 1 puff INH Q6HP PRN PRN Reason: Shortness Of Breath Dextrose (Dextrose 50% 50 Ml Vial) 0 ml IV UD PRN PRN Reason: Per Sliding Scale Diagnostic Test (Pha) (Accu-Chek 1 Each Strip) 1 each FS [facility] Last Admin: 08/22/21 11:43 Dose: 1 each Documented by: Docusate Sodium (Docusate Sodium 100 Mg Capsule) 100 mg PO BID [facility] Last Admin: 08/22/21 07:41 Dose: 100 mg Documented by: Duloxetine HCl (Duloxetine 30 Mg Capsule) 60 mg PO DAILY [facility] Last Admin: 08/22/21 08:24 Dose: 60 mg Documented by: Enoxaparin Sodium (Enoxaparin 40 Mg/0.4 Ml Syringe) 40 mg SQ DAILY [facility] Last Admin: 08/22/21 07:41 Dose: 40 mg Documented by: Ferrous Gluconate (Ferrous Gluconate 324 Mg Tablet) [facility] Glucose (Dextrose 31 Gm Oral.Susp) 15 gm PO PRN PRN PRN Reason: Hypoglycemia Hydromorphone HCl (Hydromorphone 2 Mg Tablet) 2 mg PO Q4HP PRN; Protocol PRN Reason: Per Pain Protocol Insulin Human Lispro (Insulin Lispro 1 Unit/0.01 Ml Unit) 0 unit SQ [facility]; Protocol Last Admin: 08/22/21 11:43 Dose: 2 unit Documented by: Ketorolac Tromethamine (Ketorolac 30 Mg/Ml Vial) 30 mg IV Q6HP PRN; Protocol PRN Reason: Per Pain Protocol Stop: 08/23/21 16:49 Last Admin: 08/21/21 21:34 Dose: 30 mg Documented by: Loratadine (Loratadine 10 Mg Tablet) 10 mg PO QDAY PRN PRN Reason: Allergy Symptoms Omeprazole (Omeprazole 20 Mg Capsule) 20 mg PO QDAY [facility] Last Admin: 08/22/21 08:24 Dose: 20 mg Documented by: Ondansetron HCl (Ondansetron 4 Mg/2 Ml Vial) 4 mg IV Q6HP PRN PRN Reason: Nausea And Vomiting Senna (Sennosides 1 Tablet) 2 tab PO HS [facility] Last Admin: 08/21/21 21:34 Dose: 2 tab Documented by: Sodium Chloride (0.9 % Sodium Chloride 10 Ml Syringe) 10 ml IV Q8 [facility] Last Admin: 08/22/21 04:12 Dose: 10 ml Documented by: A/P Assessment and plan (1) Ankle fracture, left: Status: Acute (2) DM2 (diabetes mellitus, type 2): Status: Acute (3) HTN (hypertension): Status: Acute (4) Myalgia and myositis: Status: Acute Narrative A/P Narrative: The patient will be hospitalized as she will require ORIF of her left ankle per orthopedic surgery. The hospitalist service was asked admit the patient for comanagement. She is on triamterenehydrochlorothiazide for hypertension which we will hold. She is no longer on statin therapy. She is on metformin 500 mg p.o. daily at home which we will hold and start on insulin sliding scale. Started on multimodal pain control with Tylenol, Dilaudid, and Toradol. 08/22: Orthopedic surgery took her to the OR yesterday for left distal fibular fracture with disruption of the mortise, left proximal fibular fracture and right proximal fibular fracture. She underwent open reduction and internal fixation of the left distal fibular fracture with syndesmosis fixation. She had right stress ankle radiographs and the right side will be treated conservatively. Weightbearing precautions per orthopedic surgery. She will need to go to a long term facility. Time Spent With Patient Time: Total time spent is greater than 50% in coordination of care (as documented) at patient's floor/unit and/or counseling patient: Total time spent with greater than 50% in coordination of care (as documented) at patient's floor/unit and/or counseling patient:: 35 - 50 minutes QUALITY VTE Deep Vein Thrombosis/Pulmonary Embolism Present on Admission: No
[2021-08-22] MEDS: FERROUS GLUCONATE 324 MG TABLET PO SCH (16:44)
[2021-08-22] MEDS: SENNOSIDES 1 TABLET PO SCH (20:50)
[2021-08-22] MEDS: KETOROLAC 30 MG/ML VIAL IV PRN (20:51)
[2021-08-23] MEDS: KETOROLAC 30 MG/ML VIAL IV PRN (03:48)
[2021-08-23] MEDS: 0.9 % SODIUM CHLORIDE 10 ML SYRINGE IV SCH ×4 (03:49→21:03)
[2021-08-23] MEDS: INSULIN LISPRO 1 UNIT/0.01 ML UNIT SQ SCH ×4 (08:45→20:38)
[2021-08-23] MEDS: DULoxetine 30 MG CAPSULE PO SCH (08:45)
[2021-08-23] MEDS: FERROUS GLUCONATE 324 MG TABLET PO SCH ×2 (08:45→17:18)
[2021-08-23] MEDS: OMEPRAZOLE 20 MG CAPSULE PO SCH (08:45)
[2021-08-23] MEDS: DOCUSATE SODIUM 100 MG CAPSULE PO SCH ×2 (08:45→21:02)
[2021-08-23] MEDS: ENOXAPARIN 40 MG/0.4 ML SYRINGE SQ SCH (08:46)
--- NOTE | 2021-08-23 12:41 | Internal Med Progress Note ---
SUBJECTIVE Subjective Patient information: Note initiated : 08/23/21 at 12:39 pm Service Date, if different from initiated Date: [] Patient: Susannah Kiran 70 y/o F admitted on 08/21/21 for weakness. Chief Complaint: [Fall] Principal diagnosis: Left ankle fracture Interval history: The patient has had an uncomplicated postoperative course. She is in good spirits. She has no active complaints or concerns. She is hoping to get her second booster prior to discharge to a long term facility. Constitutional Vitals: Vital Signs Temp Pulse Resp BP Pulse Ox 98.0 F 76 16 125/83 98 08/23/21 11:54 08/23/21 11:54 08/23/21 11:54 08/23/21 11:54 08/23/21 11:54 Period Temp Pulse Resp BP Sys/Villatoro Pulse Ox Last 24 Hr 97.3 F-98.5 F 72-108 16-18 121-143/66-87 91-99 Intake and Output 08/22/21 08/23/21 08/23/21 21:59 05:59 13:59 Intake Total 1250 300 800 Output Total 200 325 Balance 1050 -25 800 Weight 128.083 kg Intake & Output: Intake & Output 08/22/21 08/23/21 08/23/21 21:59 05:59 13:59 Intake Total 1250 300 800 Output Total 200 325 Balance 1050 -25 800 Weight 128.083 kg Intake: Oral 1250 300 800 Output: Void Amount 200 325 Other: Meal Dinner Urine Color Straw # Voids 2 1 Head Head exam: Present atraumatic and normal inspection Eye Eye exam: Present normal appearance ENT ENT exam: Present mucous membranes moist, normal exam and normal external ear exam Neck Neck exam: Present normal inspection Respiratory Respiratory exam: Present normal respiratory exam Cardiovascular Cardiovascular exam: Present normal rate and rhythm GI/Abdominal GI/Abdominal exam: Present normal bowel sounds Back Exam Back exam: Present normal inspection Neurological Exam Neurological exam: Present alert and oriented X3 Skin Skin exam: Present intact and warm OBJ DATA Labs CBC & Chem 7: 08/22/21 05:18 08/22/21 05:18 Labs: Abnormal Lab Results 08/22/21 08/22/21 08/21/21 05:18 05:18 15:58 Hct POC Hct Neut % (Auto) 84.0 H Lymph % (Auto) 12.3 L Lymph # (Auto) 1.08 L POC BUN Glucose 174 H 125 H POC Glucose POC WB Ioniz Calcium Alkaline Phosphatase 119 H 08/21/21 08/21/21 14:36 14:11 Hct 47.4 H POC Hct 52.0 H Neut % (Auto) Lymph % (Auto) Lymph # (Auto) POC BUN 23 H Glucose POC Glucose 134 H POC WB Ioniz Calcium 1.03 L Alkaline Phosphatase Meds: Medications Acetaminophen (Acetaminophen 325 Mg Tablet) 650 mg PO Q6HP PRN; Protocol PRN Reason: Per Pain Protocol/Fever > 101 Last Admin: 08/22/21 05:42 Dose: 650 mg Documented by: Acetaminophen (Acetaminophen 500 Mg Tablet) 1,000 mg PO Q6HP PRN PRN Reason: PAIN/FEVER > 101 Hydrocodone Bitart/Acetaminophen (Hydrocodone/Apap 5/325mg Tablet) 1 - 2 tab PO Q4HP PRN; Protocol PRN Reason: Per Pain Protocol Last Admin: 08/22/21 16:44 Dose: 1 tab Documented by: Albuterol Sulfate (Albuterol Sulfate 200 Puff Inhaler) 1 puff INH Q6HP PRN PRN Reason: Shortness Of Breath Last Admin: 08/23/21 08:56 Dose: 1 puff Documented by: Dextrose (Dextrose 50% 50 Ml Vial) 0 ml IV UD PRN PRN Reason: Per Sliding Scale Diagnostic Test (Pha) (Accu-Chek 1 Each Strip) 1 each FS [facility] Last Admin: 08/23/21 12:19 Dose: 1 each Documented by: Docusate Sodium (Docusate Sodium 100 Mg Capsule) 100 mg PO BID [facility] Last Admin: 08/23/21 08:45 Dose: 100 mg Documented by: Duloxetine HCl (Duloxetine 30 Mg Capsule) 60 mg PO DAILY [facility] Last Admin: 08/23/21 08:45 Dose: 60 mg Documented by: Enoxaparin Sodium (Enoxaparin 40 Mg/0.4 Ml Syringe) 40 mg SQ DAILY [facility] Last Admin: 08/23/21 08:46 Dose: 40 mg Documented by: Ferrous Gluconate (Ferrous Gluconate 324 Mg Tablet) [facility] Last Admin: 08/23/21 08:45 Dose: 324 mg Documented by: Glucose (Dextrose 31 Gm Oral.Susp) 15 gm PO PRN PRN PRN Reason: Hypoglycemia Hydromorphone HCl (Hydromorphone 2 Mg Tablet) 2 mg PO Q4HP PRN; Protocol PRN Reason: Per Pain Protocol Insulin Human Lispro (Insulin Lispro 1 Unit/0.01 Ml Unit) 0 unit SQ [facility]; Protocol Last Admin: 08/23/21 12:19 Dose: Not Given Documented by: Ketorolac Tromethamine (Ketorolac 30 Mg/Ml Vial) 30 mg IV Q6HP PRN; Protocol PRN Reason: Per Pain Protocol Stop: 08/23/21 16:49 Last Admin: 08/23/21 03:48 Dose: 30 mg Documented by: Loratadine (Loratadine 10 Mg Tablet) 10 mg PO QDAY PRN PRN Reason: Allergy Symptoms Omeprazole (Omeprazole 20 Mg Capsule) 20 mg PO QDAY [facility] Last Admin: 08/23/21 08:45 Dose: 20 mg Documented by: Ondansetron HCl (Ondansetron 4 Mg/2 Ml Vial) 4 mg IV Q6HP PRN PRN Reason: Nausea And Vomiting Senna (Sennosides 1 Tablet) 2 tab PO HS [facility] Last Admin: 08/22/21 20:50 Dose: 2 tab Documented by: Sodium Chloride (0.9 % Sodium Chloride 10 Ml Syringe) 10 ml IV Q8 [facility] Last Admin: 08/23/21 05:47 Dose: Not Given Documented by: A/P Assessment and plan (1) Ankle fracture, left: Status: Acute (2) DM2 (diabetes mellitus, type 2): Status: Acute (3) HTN (hypertension): Status: Acute (4) Myalgia and myositis: Status: Acute Narrative A/P Narrative: The patient will be hospitalized as she will require ORIF of her left ankle per orthopedic surgery. The hospitalist service was asked admit the patient for comanagement. She is on triamterenehydrochlorothiazide for hypertension which we will hold. She is no longer on statin therapy. She is on metformin 500 mg p.o. daily at home which we will hold and start on insulin sliding scale. Started on multimodal pain control with Tylenol, Dilaudid, and Toradol. 08/22: Orthopedic surgery took her to the OR yesterday for left distal fibular fracture with disruption of the mortise, left proximal fibular fracture and right proximal fibular fracture. She underwent open reduction and internal fixation of the left distal fibular fracture with syndesmosis fixation. She had right stress ankle radiographs and the right side will be treated conservatively. Weightbearing precautions per orthopedic surgery. She will need to go to a long term facility. 08/23: Clinically status quo. Awaiting insurance authorization to go to a long term facility. Time Spent With Patient Time: Total time spent is greater than 50% in coordination of care (as documented) at patient's floor/unit and/or counseling patient: Total time spent with greater than 50% in coordination of care (as documented) at patient's floor/unit and/or counseling patient:: 25 - 35 minutes QUALITY VTE Deep Vein Thrombosis/Pulmonary Embolism Present on Admission: No
[2021-08-23] MEDS: HYDROcodone/APAP 5/325MG TABLET PO PRN (21:02)
[2021-08-23] MEDS: SENNOSIDES 1 TABLET PO SCH (21:02)
[2021-08-24] MEDS: HYDROcodone/APAP 5/325MG TABLET PO PRN ×2 (00:56→08:15)
[2021-08-24] MEDS: 0.9 % SODIUM CHLORIDE 10 ML SYRINGE IV SCH (05:00)
[2021-08-24] MEDS: INSULIN LISPRO 1 UNIT/0.01 ML UNIT SQ SCH (07:01)
[2021-08-24] MEDS: DULoxetine 30 MG CAPSULE PO SCH (08:14)
[2021-08-24] MEDS: FERROUS GLUCONATE 324 MG TABLET PO SCH (08:14)
[2021-08-24] MEDS: OMEPRAZOLE 20 MG CAPSULE PO SCH (08:14)
[2021-08-24] MEDS: ENOXAPARIN 40 MG/0.4 ML SYRINGE SQ SCH (08:15)
[2021-08-24] MEDS: DOCUSATE SODIUM 100 MG CAPSULE PO SCH (08:15)
--- NOTE | 2021-08-24 10:02 | Discharge Summary ---
Discharge Provider Provider Patient information: Note initiated : 08/24/21 at 10:02 am Service Date, if different from initiated Date: [] Patient: Susannah Kiran 70 y/o F admitted on 08/21/21 for weakness. Chief Complaint: [] Date of admission: 08/21/21 19:33 Discharge date: 08/24/21 Primary care physician: Florecita Lozano Admitting clinician: Axel Carrillo Consults: 08/21/21 Consult to Physician [CONS] Stat Comment: Consulting Provider: Axel Carrillo Reason For Exam: Physician to Consult Consult to Physician [CONS] Stat Comment: Consulting Provider: Eddie Solo Reason For Exam: Physician to Consult Attending physician on discharge: Axel Carrillo Discharge Meds Discharge Medications Home Medications Gentle Iron 28 mg PO BID 08/21/21 [History Confirmed 08/21/21 Last Taken Unknown] Tylenol Extra Strength 1,000 mg PO Q6HP PRN 08/21/21 [History Confirmed 08/21/21 Last Taken Unknown] albuterol sulfate 90 mcg/actuation aerosol inhaler (Ventolin HFA) See Rx Instructions .ROUTE .COMPLEX PRN 08/21/21 [History Confirmed 08/21/21 Last Taken Unknown] duloxetine 60 mg capsule,delayed release 1 cap PO QDAY 08/21/21 [History Confirmed 08/21/21 Last Taken Unknown] loratadine 10 mg tablet (Allerclear) 10 mg PO QDAY PRN 08/21/21 [History Confirmed 08/21/21 Last Taken Unknown] metformin 500 mg tablet,extended release 24 hr 1 tab PO QDAY 08/21/21 [History Confirmed 08/21/21 Last Taken Unknown] omeprazole 20 mg capsule,delayed release 1 cap PO QDAY 08/21/21 [History Confirmed 08/21/21 Last Taken Unknown] tizanidine 4 mg tablet 1 tab PO QPM 08/21/21 [History Confirmed 08/21/21 Last Taken Unknown] triamterene 37.5 mg-hydrochlorothiazide 25 mg capsule 1 cap PO QDAY 08/21/21 [History Confirmed 08/21/21 Last Taken Unknown] enoxaparin 40 mg/0.4 mL subcutaneous syringe (Lovenox) 40 mg (0.4 mL) SQ DAILY 14 Days #14 ml 05/13/22 [Rx Last Taken Unknown] hydrocodone 5 mg-acetaminophen 325 mg tablet 1 - 2 tab PO Q4HP PRN 7 Days #30 tab 08/24/21 [Rx Last Taken Unknown] hydromorphone 2 mg tablet 2 mg PO Q4HP PRN 7 Days #10 tab 08/24/21 [Rx Last Taken Unknown] COURSE Hospital Course Hospital course: Ms. Kiran is a 70 year old F with a past medical history significant for diabetes mellitus type 2, hypertension and hyperlipidemia who presents to the hospital with a fall down the stairs resulting in left ankle fracture. The patient states that she was previously on statin therapy which resulted in severe myalgias leaving her incapacitated. She did not go outside for several weeks. She decided to leave her house today and was walking down the stairs sideways by holding the rails with both hands and taking 1 step at a time however ended up tumbling down the stairs. She lives alone but her purse was near her and she was able to call EMS. On presentation she was hemodynamically stable and afebrile. X-ray of the left ankle revealed fracture of the lateral talus and lateral subluxation. Continue narcotic analgesics, lovenox for DVT ppx, and f/u with ortho in outpatient setting. As per ortho: PREOPERATIVE DIAGNOSES: 1. Left distal fibular fracture with disruption of the mortise. 2. Left proximal fibular fracture. 3. Right proximal fibular fracture. Left lower extremity was placed in a boot as well for support. POSTOPERATIVE PLAN: The patient will be transferred to PACU, but will be admitted, given her living alone, as well as bilateral lower extremity injuries limiting her weightbearing and function overall. She will likely require a short stay in a rehab facility. Discharge diagnosis: Bilateral ankle fracture Time Spent with Patient Time attestation: Total time spent providing and/or coordinating discharge services: Time spent: Greater than 30 minutes EXAM Constitutional Vitals: Temp Pulse Resp BP Pulse Ox 98.0 F 80 18 176/92 97 08/24/21 06:43 08/24/21 06:43 08/24/21 06:43 08/24/21 06:43 08/24/21 06:43 General appearance: average body habitus Head Head exam: Present atraumatic, normal inspection and normocephalic Eye Eye exam: Present EOMI, normal appearance and PERRL; Absent conjunctival injection ENT ENT exam: Present normal exam; Absent mucous membranes dry Neck Neck exam: Present full ROM; Absent lymphadenopathy Respiratory Respiratory exam: Present normal respiratory exam and CTAB; Absent decreased breath sounds, respiratory distress or wheezes Cardiovascular Cardiovascular exam: Present normal rate and rhythm and RRR; Absent JVD GI/Abdominal GI/Abdominal exam: Present normal bowel sounds and soft; Absent diminished bowel sounds, distended, guarding, mass, rebound or tenderness Neurological Exam Neurological exam: Present alert, CN II-XII intact and oriented X3 Psychiatric Psychiatric exam: Present normal affect and normal mood Skin Skin exam: Present intact and warm; Absent erythema, pallor, petechiae or rash Discharge Plan Patient/Caregiver Discharge Instructions Activity: as per physical therapy and as instructed Activity Restrictions/Additional Instructions: - Foot flat weight bearing (25%) left lower extremity - WBAT on right lower extremity but will still be limited secondary to fracture - Left ankle dressing: leave in place until follow up with orthopedics. Do not get wet - Left ankle: can work on moving ankle up and down but not side to side, wiggle toes - Elevate left ankle to help decrease swelling/pain - Ice for 20-30 minutes every 3-4 hours as needed. Prescriptions: New hydrocodone-acetaminophen 5-325 mg Tablet 1 - 2 tab PO Q4HP PRN (Reason: Per Pain Protocol) 7 Days Qty: 30 0RF hydromorphone 2 mg Tablet 2 mg PO Q4HP PRN (Reason: Per Pain Protocol) 7 Days Qty: 10 0RF enoxaparin [Lovenox] 40 mg/0.4 mL Syringe 40 mg SQ DAILY 14 Days Qty: 14 0RF Continued duloxetine 60 mg capsule,delayed release(DR/EC) 1 cap PO QDAY 0RF metformin 500 mg tablet extended release 24 hr 1 tab PO QDAY 0RF tizanidine 4 mg tablet 1 tab PO QPM 0RF omeprazole 20 mg capsule,delayed release(DR/EC) 1 cap PO QDAY 0RF triamterene-hydrochlorothiazid 37.5-25 mg capsule 1 cap PO QDAY 0RF albuterol sulfate [Ventolin HFA] 90 mcg/actuation Hfa Aerosol Inhaler See Rx Instructions .ROUTE .COMPLEX PRN (Reason: Shortness Of Breath) 0RF Rx Instructions: PRN loratadine [Allerclear] 10 mg Tablet 10 mg PO QDAY PRN (Reason: Allergy Symptoms) 0RF Tylenol Extra Strength 1,000 mg PO Q6HP PRN (Reason: Pain) 0RF Gentle Iron 28 mg PO BID 0RF Follow Up Plan Follow up with: Florecita Lozano MD [Primary Care Provider] - Eddie Solo MD [Physician] - (10-13 days post operative care) Patient Disposition: Xfer SNF Rehab Potential: Good I certify that the patient requires SNF services: Yes Overall status at discharge: patient is progressing back to baseline Discharge Orders: Discharge Order (Routine); Ordered 08/24/21 Ordered By: Axel VARGAS VTE Deep Vein Thrombosis/Pulmonary Embolism Present on Admission: No
--- NOTE | 2021-08-24 11:33 | EKG ---
[facility] Test Date: 2021-08-21 Pat Name: Susannah Kiran Department: ED Room: Gender: Female Transplant Registered Nurse: AW : 1950 Requested By: Wen Lewis Order Number: [id number] Reading MD: Stanley Zambrano D.O. Measurements Intervals [place] Rate: 98 P: 36 LA: 169 QRS: -25 QRSD: 85 T: 86 QT: 345 QTc: 441 Interpretive Statements Sinus rhythm Inferior infarct, old Delayed R wave progression Electronically Signed On 08-24-2021 11:32:29 PDT by Stanley Zambrano D.O. /[id number]
== END 2021-08-24 11:33 | DRG 493 ==
LOC: ED 13:25 → SUR 17:12 → MEDSUR 19:33
PROVIDERS: ADMIT Student in an Organized Health Care Education/Training Program; ATTEND Student in an Organized Health Care Education/Training Program